=== PATIENT | male | born 1965 | race Caucasian/White ===

== ENCOUNTER 2018-08-17 20:18 | Inpatient (IN) | payer OTHER ==
[~2018-08-17] VITALS: Ht 180.3 cm; Wt 122.3 kg
[2018-08-17 20:42] LABS: BASOPHILS ABSOLUTE AUTO 0.06 K/mm3 (0.00-0.23); BASOPHILS PERCENT AUTO 1 % (0-2); EOSINOPHILS ABSOLUTE AUTO 0.15 K/mm3 (0.00-0.68); EOSINOPHILS PERCENT AUTO 2 % (0-6); Hematocrit 47.3 % (37.0-53.0); Hemoglobin 15.9 g/dL (13.5-17.5); IMMATURE GRAN ABSOLUTE AUTO 0.04 K/mm3 (0.00-0.10); IMMATURE GRAN PERCENT AUTO 1 % (0-1); LYMPHOCYTES ABSOLUTE AUTO 1.05 K/mm3 (0.84-5.20); LYMPHOCYTES PERCENT AUTO 13 % (21-46); MONOCYTES ABSOLUTE AUTO 0.87 K/mm3 (0.16-1.47); MONOCYTES PERCENT AUTO 11 % (4-13); Mean Corpuscular HGB 32.1 pg (26.0-34.0); Mean Corpuscular HGB Conc 33.6 g/dL (31.5-36.5); Mean Corpuscular Volume 96 fL (80-100); Mean Platelet Volume 9.1 fL (9.1-12.4); NEUTROPHILS ABSOLUTE AUTO 5.82 K/mm3 (1.96-9.15); NEUTROPHILS PERCENT AUTO 73 % (41-73); Platelet Count 254 K/mm3 (150-400); RDW Coefficient Variation 12.2 % (11.7-14.2); RDW Standard Deviation 42.9 fL (35.1-46.3); Red Blood Cell Count 4.95 M/mm3 (4.30-5.90); White Blood Cell Count 7.99 K/mm3 (4.00-11.30)
[2018-08-17 20:55] LABS: Albumin, Blood 3.5 g/dL (3.4-5.0); Albumin/Globulin Ratio 1.1 (0.8-1.8); Bilirubin, Total 1.1 mg/dL (0.1-1.0); Bun/Creatinine Ratio 11.9 (12.0-20.0); Calcium, Blood 8.7 mg/dL (8.5-10.1); Creatinine, Blood 1.35 mg/dL (0.60-1.20); Globulin, Blood 3.2 g/dL (2.2-4.0); Potassium, Blood 3.6 mmol/L (3.5-5.5); Total Protein, Blood 6.7 g/dL (6.4-8.2); Troponin I 0.086 ng/mL (0.000-0.040)
[2018-08-17 21:50] LABS: Prothrombin Time Results 10.6 Sec (9.7-11.5)
[2018-08-17] MEDS ORDERED: METO50 PO (22:13)
[2018-08-17] MEDS ORDERED: AMLO5 PO (22:14)
[2018-08-17] MEDS ORDERED: LO-DOSE ASPIRIN81 MG PO (22:16)
[2018-08-17 22:34] LABS: Thyroid Stimulating Hormone 2.55 uIU/mL (0.360-4.800)
--- NOTE | 2018-08-17 23:25 | NUR ---
PATIENT ARRIVED TO ICU14 VIA GURNEY FROM ED. ADMIT WITH DX OF NSTEMI. PATIENT AWAKE, VERBALIZED CONTINUES TO HAVE CHEST PRESSURE TO HIS UPPER CHEST/THROAT AREA 10/10. PATIENT TRANSFER TO BED USING SLIDER SHEET AND PATIENT HAVING N/V WITH SMALL AMT OF CLEAR/BLOOD TINGED SPUTUM. ZOFRAN IV GIVEN. PATIENT PLACED ON ICU MONITORS, REGULATORY LEAD SHOWING SINUS RHYTHM WITH DEPRESSED T WAVE. PATIENT VERBALIZED FEELING IF HE MAY NEED TO HAVE A BM, PASSING FLATUS. PATIENT ABLE TO ANSWER ADMIT QUESTIONS, NAUSEA CONTINUES BUT NO FURTHER EMESIS.
[2018-08-18 00:57] LABS: Source, Urine Clean Catch
[2018-08-18 01:02] LABS: Bilirubin, Urine Neg (Neg); Blood, Urine 1+ (Neg); Glucose Qualitative, Urine Neg (Neg); Ketones, Urine Neg (Neg); Leukocyte Esterase, Urine Neg (Neg); Nitrite, Urine Neg (Neg); Protein, Urine 1+ (Neg); Urobilinogen, Urine NORM (Normal)
[2018-08-18 01:11] LABS: Appearance, Urine Clear (Clear); Bacteria Not Seen /hpf; Color, Urine Yellow (P-Yellow); Red Blood Cells, Urine 0-2 /hpf (0-2); Squamous Epithelial Cells Rare /hpf (Few); White Blood Cells, Urine Rare /hpf (0-5)
[2018-08-18 02:03] LABS: Hematocrit 44.4 % (37.0-53.0); Hemoglobin 15.3 g/dL (13.5-17.5); Mean Corpuscular HGB Conc 34.5 g/dL (31.5-36.5); Mean Corpuscular Volume 96 fL (80-100); Mean Platelet Volume 9.3 fL (9.1-12.4); Platelet Count 235 K/mm3 (150-400); RDW Coefficient Variation 12.3 % (11.7-14.2); RDW Standard Deviation 42.7 fL (35.1-46.3); Red Blood Cell Count 4.64 M/mm3 (4.30-5.90)
[2018-08-18 02:22] LABS: Anion Gap 4 mmol/L (6-16); Blood Urea Nitrogen 17 mg/dL (8-24); Bun/Creatinine Ratio 13.9 (12.0-20.0); CHOL/HDL RATIO 2.7; CO2, Blood 29 mmol/L (21-32); Calcium, Blood 8.7 mg/dL (8.5-10.1); Chloride, Blood 109 mmol/L (98-108); Cholesterol 140 mg/dL (50-200); Creatinine, Blood 1.22 mg/dL (0.60-1.20); Glomerular Filtration Rate >60 (60-); Glucose, Blood 111 mg/dL (70-99); HDL Cholesterol 52 mg/dL (>39); LDL/HDL RATIO 1.4; Low Density Lipoprotein Chol 73 mg/dL (0-110); Sodium, Blood 142 mmol/L (136-145); Triglycerides 73 mg/dL (30-160); Very Low Density Lipoprot Chol 14 mg/dL (6-32)
--- NOTE | 2018-08-18 02:52 | NUR ---
PATIENT INSISTING ON GETTING UP TO BSC TO HAVE BM. PATIENT UP WITH 2 ASSIST WHEN UP ON BSC PATIENT BEGAN TO FEEL IF HE COULDN'T BREATH, AND BECOMING VERY ANXIOUS. PATIENT ABLE TO TRANSFER BACK TO BED WHERE HE HAD DRY HEAVES AND WAS DIAPHORETIC. EKG OBTAINED. SOB APPEARS TO HAVE RESOLVED. PATIENT CONTINUES TO FEEL NAUSEA. PATIENT AGREES THAT HE WILL REMAIN IN BED AND USE BEDPAN IF NEEDED.
--- NOTE | 2018-08-18 03:08 | NUR ---
DOCTOR CHRISTELLE GIVEN UPDATE AND TROPI RESULTS. CONTINUE SAME ORDERS AND REGLAN IV X1.
--- NOTE | 2018-08-18 04:37 | NUR ---
PATIENT VERBALIZED THAT HE IS FEELING BETTER. MID CHEST PRESSURE AND ACHINESS CONTINUES MORE SO WITH DEEP BREATH. NAUSEA HAS PASSED.
--- NOTE | 2018-08-18 06:38 | NUR ---
SUMMARY PATIENT AWAKE MOST OF THE NIGHT. NAUSEA RESOLVED. PATIENT FEELING IF HE STILL NEEDS TO HAVE BM, PLACED ON BEDPAN, PASSING SMEAR OF BROWN STOOL WITH FLATUS. VOIDING DARK ALTAGRACIA URINE T/O NIGHT USING URINAL WITHOUT DIFFICULTY. PATIENT VERBALIZED CONTINUES TO HAVE ACHINESS AND PRESSURE TO MID UPPER CHEST. DBP ELEVATED. NITRO PASTE ORDERED. HEPARIN DRIP CONTINUES AT 13 UNITS/KG.
--- NOTE | 2018-08-18 07:20 | NUR ---
DR. VILLEGAS HERE TO SEE PATIENT. DOCTOR INFORMED THAT PATIENT HAS CONTINUED TO HAVE NAUSEA AND HEAVY CHEST PAIN T/O NIGHT. DOCTOR ALSO INFORMED THAT PATIENT HAS BEEN HYPERTENSIVE. ORDERS RECEIVED. DOCTOR STATED HE WILL BE TAKING PATIENT TO THE [facility] TODAY.
--- NOTE | 2018-08-18 08:30 | NUR ---
INITIAL ASSESSMENT PATIENT LYING IN BED QUIETLY UPON ENTERING ROOM. PATIENT ALERT AND ORIENTED X 4, AFEBRILE. PATIENT OCCASIONALLY ANXIOUS. PATIENT STATES THAT HE HAS HAD NUMBNESS IN FEET SINCE HIS SYMPTOMS FIRST STARTED YESTERDAY. PATIENT STATES HE HAS A HEAVINESS IN THE MIDDLE OF HIS CHEST THAT HE HAS HAD SINCE YESTERDAY BUT THAT THE PAIN IS MANAGEABLE AT THIS TIME. PATIENT ON 2 L NC FOR FEELING OF SOB. SATS 90% AND GREATER. LUNGS CLEAR IN UPPER LOBES AND DIMINISHED IN LOWER LOBES. PATIENT HAS OCCASIONAL, PRODUCTIVE COUGH, PRODUCING SMALL AMOUNT OF THICK, YELLOW PHLEGM. PATIENT STARTED THAT COUGH STARTED AFTER COMING TO THE HOSPITAL. PATIENT IN SR, T WAVE FLIPPED. HR 80S TO 90S. PATIENT HYPERTENSIVE- SBP 170S TO 180S. PULSES STRONG. SCDS IN PLACE. ABDOMEN MODERATELY DISTENDED, SOFT, TENDER TO PALPATION, WITH HYPOACTIVE BS. PATIENT FEELS NAUSEOUS AND STATES THAT HE HAS BEEN ALL NIGHT. PATIENT NPO EXCEPT PO MEDICATIONS. WNL- PATIENT USING BEDSIDE URINAL. RASH NOTED FROM MID ABDOMEN UP TO NECK; PATIENT STATES THIS IS NORMAL FOR HIM AND SEES CRIMINAL RECORDS TECHNICIAN BECAUSE HE GETS 2 TIMES PER YEAR. TRACE EDEMA NOTED TO BLES. NS INFUSING AT 100 MLS/ HOUR, HEPARIN INFUSING AT 14 UNITS/ KG/ HOUR. BED LOW, CALL LIGHT IN REACH. WILL CONTINUE TO MONITOR PATIENT FREQUENTLY THROUGHOUT SHIFT.
--- NOTE | 2018-08-18 10:32 | NUR ---
DR. ALDRIDGE NOTIFIED THAT PATIENT COMPLAINS OF INCREASING CP, SOB AND IS "FEELING LIKE HE COULD PASS OUT AT ANY TIME". ORDERS RECEIVED FOR PRN NITRO AND EKG NOW. NITRO X 2 GIVEN THUS FAR. EKG PERFORMED. DR. CHRISTINEAD HERE NOW TO SEE PATIENT AND REVIEW EKG. STATES THAT HE BELIEVES PAIN IS NON-CORONARY RELATED. WILL CONTINUE TO MONITOR.
--- NOTE | 2018-08-18 10:37 | NUR ---
PATIENT STATES THAT PAIN IS STILL IN HIS CHEST AFTER RECEIVING 2 DOSES OF PRN NITRO BUT THAT THE PAIN IS NOTICEABLY BETTER. PATIENT STATES PAIN INCREASES WITH COUGHING OR DEEP BREATHING. WILL CONTINUE TO MONITOR.
--- NOTE | 2018-08-18 12:10 | NUR ---
PATIENT RESTING QUIETLY IN BED UPON ENTERING ROOM. AFEBRILE. NO NEURO CHANGES SINCE LAST ASSESSMENT. PATIENT STATES THAT HIS THROAT HURTS, THAT HIS CHEST PAIN IS TOLERABLE AT 4/10, AND THAT HE ALSO HAS SOME RIGHT KIDNEY PAIN. PATIENT STATES THAT HE DOES NOT WANT ANY PAIN MEDICATIONS AT THIS TIME. PATIENT ALSO STATES THAT HE CONTINUES TO HAVE NAUSEA BUT THAT IT IS MUCH BETTER THAN IT WAS BEFORE. PATIENT REMAINS SATTING 90% AND GREATER ON 2 L NC. PATIENT IN SR WITH OCCASIONAL PVCS. T WAVE FLIPPED. HR IN THE 70S. BP STABLE. URINE DARK ORANGE IN COLOR. NO OTHER ACUTE CHANGES TO NOTE ON AT THIS TIME. WILL CONTINUE TO MONITOR.
--- NOTE | 2018-08-18 15:22 | NUR ---
PATIENT TAKEN TO ROBOT TECHNICIAN.
--- NOTE | 2018-08-18 18:17 | NUR ---
PATIENT BACK FROM MANAGER MEDIA RELATIONS AT 1717. PATIENT A LITTLE DROWSY. PATIENT DENIES NAUSEA OR PAIN AT THIS TIME. PATIENT AFEBRILE. PATIENT SATTING 90% AND GREATER ON RA. HR 70S TO 80S. BP STABLE. TR BAND TO RIGHT RADIAL SITE- 12 CC AIR INSTILLED IN BAND. ANGIOSEAL TO R GROIN. NO BLEEDING, BRUISING, OR HEMATOMA NOTED AT EITHER SITE. NO INTERVENTIONS PERFORMED IN MANAGER MEDIA RELATIONS. PATIENT AWARE OF ACTIVITY RESTRICTIONS. NS TKO. HEPARIN DRIP DC'D. NO OTHER ACUTE CHANGES TO NOTE ON AT THIS TIME. WILL CONTINUE TO MONITOR.
--- NOTE | 2018-08-18 19:31 | NUR ---
SHIFT SUMMARY PATIENT REMAINED ALERT AND ORIENTED, AFEBRILE. PATIENT HAD COMPLAINTS OF PAIN IN MID CHEST, THROAT, R KIDNEY AND R RADIAL SITE T/O SHIFT. PATIENT REMAINED SATTING 90% AND GREATER ON RA TO 2 L NC. UPPER LOBES REMAINED CLEAR, LOWER LOBES REMAINED DIMINISHED. PATIENT COMPLAINED OF OFF AND ON SOB T/O SHIFT. PATIENT HAS BEEN COUGHING UP SMALL AMOUNT OF THICK, YELLOW SPUTUM. PATIENT HAS REMAINED IN SR WITH OCCASIONAL PVCS, T WAVE FLIPPED. HR 70S TO 90S. PATIENT HAS BEEN HYPERTENSIVE OFF AND ON. BP MEDS CHANGED DURING THIS SHIFT. PATIENT DID NOT HAVE BM THIS SHIFT. PATIENT HAD NAUSEA UP UNTIL RETURNING FROM SUPERVISOR DRYING AND SOFTENING. PATIENT IS TOLERATING CARDIAC DIET AT THIS TIME. PATIENT VOIDING DARK ORANGE URINE. TR BAND TO R RADIAL- 12 CC AIR INSTILLED- BAND CAN START TO BE DEFLATED NOW. ANGIOSEAL TO R GROIN. BOTH SITES REMAIN STABLE- NO BLEEDING, BRUISING, OR HEMATOMA NOTED. NO INTERVENTION PERFORMED IN SUPERVISOR DRYING AND SOFTENING. NS TKO. ECHO PERFORMED TODAY- EF 30 TO 35%. PATIENT GIVEN 20 MG PO LASIX. PATIENT HAS NO COMPLAINTS AT THIS TIME. REPORT GIVEN TO ASSUMING NURSE, HILARIO Silveira
--- NOTE | 2018-08-18 20:41 | NUR ---
PATIENT AWAKE EATING DINNER. BED REST DUE TO RIGHT GROIN SITE POST CATH. RIGHT GROIN SITE WITH DRESSING D&I WITH SMALL AMT DRY BLOOD CONTAINED IN DRESSING AND SMALL BRUISING TO OUT SIDE OF DRESSING. RIGHT WRIST WITH TR BAND IN PLACE STARTING TO DECREASE PRESSURE TO SITE. SITE REMAINS WITH NO SWELLING, REDNESS OR BLEEDING SEEN. HYPERTENSION CONTINUES PLAN TO GIVE EVENING DOSE OF METOPROLOL NOW. PATIENT CONTINUES TO FEEL SOB AND HAS INCREASED CHEST PRESSURE WITH DEEP BREATH. NO C/O NAUSEA AT THIS TIME.
--- NOTE | 2018-08-18 22:28 | NUR ---
PATIENT RESTING QUIETLY, SLEEPING WITH SOFT SNORING AWAKENS TO SLIGHT STIMULI, PATIENT VERBALIZED THAT HIS PAIN IS BETTER BUT CONTINUES TO C/O SOB OXYGEN REMAINS IN PLACE AT 2L/NC WITH BIOX 96% LUNG SOUND DECREASED BASES. PATIENT VERBALIZED "I JUST DON'T FEEL GOOD" RIGHT GROIN SITE STABLE AND PATIENT ABLE TO REPOSITION SELF IN BED FOR COMFORT. TR BAND FULLY DEFLATED SITE UNCHANGED.
[2018-08-19 03:25] LABS: BASOPHILS ABSOLUTE AUTO 0.06 K/mm3 (0.00-0.23); BASOPHILS PERCENT AUTO 1 % (0-2); EOSINOPHILS ABSOLUTE AUTO 0.21 K/mm3 (0.00-0.68); EOSINOPHILS PERCENT AUTO 3 % (0-6); Hematocrit 45.6 % (37.0-53.0); Hemoglobin 15.1 g/dL (13.5-17.5); IMMATURE GRAN ABSOLUTE AUTO 0.02 K/mm3 (0.00-0.10); IMMATURE GRAN PERCENT AUTO 0 % (0-1); LYMPHOCYTES ABSOLUTE AUTO 0.96 K/mm3 (0.84-5.20); LYMPHOCYTES PERCENT AUTO 11 % (21-46); MONOCYTES ABSOLUTE AUTO 1.03 K/mm3 (0.16-1.47); MONOCYTES PERCENT AUTO 12 % (4-13); Mean Corpuscular HGB 32.2 pg (26.0-34.0); Mean Corpuscular HGB Conc 33.1 g/dL (31.5-36.5); Mean Corpuscular Volume 97 fL (80-100); NEUTROPHILS ABSOLUTE AUTO 6.24 K/mm3 (1.96-9.15); NEUTROPHILS PERCENT AUTO 73 % (41-73); Platelet Count 230 K/mm3 (150-400); RDW Coefficient Variation 12.4 % (11.7-14.2); RDW Standard Deviation 44.1 fL (35.1-46.3); Red Blood Cell Count 4.69 M/mm3 (4.30-5.90); White Blood Cell Count 8.52 K/mm3 (4.00-11.30)
[2018-08-19 03:39] LABS: Albumin, Blood 3.5 g/dL (3.4-5.0); Anion Gap 4 mmol/L (6-16); Blood Urea Nitrogen 14 mg/dL (8-24); Bun/Creatinine Ratio 11.2 (12.0-20.0); CO2, Blood 31 mmol/L (21-32); Calcium, Blood 8.5 mg/dL (8.5-10.1); Chloride, Blood 104 mmol/L (98-108); Creatinine, Blood 1.25 mg/dL (0.60-1.20); Glomerular Filtration Rate >60 (60-); Glucose, Blood 94 mg/dL (70-99); Phosphorus, Blood 3.4 mg/dL (2.5-4.9); Sodium, Blood 139 mmol/L (136-145)
--- NOTE | 2018-08-19 06:17 | NUR ---
SUMMARY PATIENT SLEEPING WELL T/O NIGHT. AWAKENS TO SLIGHT STIMULI, FALLING BACK TO SLEEP WHEN UNDISTURBED. RIGHT WRIST SITE REMAINS STABLE WITH CLEAR DRESSING IN PLACE ARM BOARD IN PLACE. RIGHT GROIN SITE REMAINS SOFT WITH NO CHANGE TO BRUISING SEEN AROUND SITE. FREIGHT CAR CLEANER SHOWING LESS PVC'S TONIGHT. PATIENT C/O FEELING SOB AT BEGINNING OF SHIFT 2L/NC REMAINS IN PLACE, PATIENT APPEARS TO HAVE NO MORE C/O FEELING SOB. PATIENT NOW PCU STATUS.
--- NOTE | 2018-08-19 09:02 | NUR ---
CARE ASSUMED CARE AND REPORT ASSUMED FROM HILARIO ASTORGA. PT UP TO TOILET WITH ASSIST AND THEN COMPLAINED OF R SIDED ABDOMINAL PAIN, AND R LEG PAIN. POPLITEAL AND PEDAL PULSES PRESENT. NO ERYTHEMA OR WARMTH TO EITHER LEG. MILD SURROUNDING ECCHYMOSIS AROUND R GROIN PUNCTURE SITE AND SURROUNDING TISSUE IS SOFT WITH TENDERNESS TO PALPATION. LUNG SOUNDS CLEAR. PT C/O SOB; PREFERES TO WEAR 2L NC. R RADIAL SITE INTACT WITH NO DRAINAGE OR OOZING; R ARM SECURED IN ARMBOARD. IV SALINE LOCKED. NSR, HR 90S. C/O NAUSEA; ZOFRAN 4 MG IVP GIVEN. WILL CONTINUE TO MONITOR.
[2018-08-19 11:08] LABS: Source, Urine Clean Catch
[2018-08-19 11:21] LABS: Appearance, Urine Clear (Clear); Bilirubin, Urine Neg (Neg); Blood, Urine Neg (Neg); Color, Urine Yellow (P-Yellow); Glucose Qualitative, Urine Neg (Neg); Ketones, Urine Neg (Neg); Leukocyte Esterase, Urine Neg (Neg); Nitrite, Urine Neg (Neg); Protein, Urine Neg (Neg); Urobilinogen, Urine NORM (Normal)
--- NOTE | 2018-08-19 11:41 | NUR ---
REASSESSMENT PT WHEELED TO CT SCAN FOR IMAGING AND IS NOW BACK IN RECLINER CHAIR. SITTING UP TALKING ON PHONE. PT HAS INTERMITTENT EPISODES WHERE HE COMPLAINS OF PAIN TO BACK, THEN IT CHANGES TO SHOULDER, THEN BACK TO ABDOMEN, THEN LEG WHEN HE STANDS, AND NOW PAIN IS BACK IN SHOULDER. DENIES NAUSEA AT THIS TIME. VSS. NSR, HR 70S. SPO2 98% ON RA. AFEBRILE. REFUSES PAIN MEDS. UA SENT TO LAB. WILL CONTINUE TO MONITOR.
--- NOTE | 2018-08-19 17:57 | NUR ---
SHIFT SUMMARY PT HAD MULTIPLE COMPLAINTS OF PAIN THIS AM AT START OF SHIFT. SINCE THEN, PAIN HAS IMPROVED BUT STILL SLIGHTLY REMAINS ON R ABDOMEN AND R FLANK. RECIEVED ABDOMINAL CT TODAY TO R/O RETROPERITONEAL BLEED. HEPATIC US ALSO DONE THIS AM. MD GOEL NOTIFIED THAT PT WOULD LIKE TO DISCUSS HIS TEST RESULTS WITH HER; BESIDE AT THIS TIME. ORDER FOR LIFE [facility]ST FAXED TO CARDIOLOGY OFFICE. COMPO CONVEYOR OPERATOR CONSULT ORDERED FOR HELP WITH ARRANGEMENTS TO GO BACK HOME. R GROIN SITE AND R RADIAL SITE ARE INTACT WITH NO BLEEDING AND NO CHANGES OF ECCHYMOSIS. PT MOBILE AND AMBULATES WITH WALKER BUT IS SLOW AND C/O PAIN TO R LEG. WILL GIVE BEDSIDE, HANDOFF REPORT TO DALLAS ASTORGA.
--- NOTE | 2018-08-20 00:27 | NUR ---
ASSUMED CARE ASSUMED CARE OF PT APPROX. 1900. PT A&OX4. ASSESMENT COMPLETED. VITAL SIGNS STABLE. PT HAS RT GROIN SITE, POST ANGIO. DRAINAGE NOTED BUT REMAINS UNCHAGNED VIA REPORT. DRAINAGE HAS REMAINED UNCHANGED SINCE START OF SHIFT. BRUISING NOTED AT SITE AND THIS HAS REMAINED UNCHANGED WELL. SITE TENDER TO TOUCH. PREVIOUS RN REPORTED THIS TO BE UNCHANGED. PT REPROTS INCREASE IN PAIN ON RIGHT ABDOMEN. PRN PAIN MEDICATION GIVEN PER EMAR. BED IN LOW POSITION, CALL LIGHT IN REACH AND PT DENIES ANY NEEDS AT THIS TIME.
[2018-08-20 03:57] LABS: Albumin, Blood 3.4 g/dL (3.4-5.0); Anion Gap 5 mmol/L (6-16); Blood Urea Nitrogen 16 mg/dL (8-24); Bun/Creatinine Ratio 13.4 (12.0-20.0); CO2, Blood 28 mmol/L (21-32); Calcium, Blood 8.8 mg/dL (8.5-10.1); Chloride, Blood 106 mmol/L (98-108); Creatinine, Blood 1.19 mg/dL (0.60-1.20); Glomerular Filtration Rate >60 (60-); Glucose, Blood 103 mg/dL (70-99); Phosphorus, Blood 2.8 mg/dL (2.5-4.9); Potassium, Blood 3.9 mmol/L (3.5-5.5); Sodium, Blood 139 mmol/L (136-145)
--- NOTE | 2018-08-20 06:32 | NUR ---
SHIFT SUMMARY PT PLEASANT, COOPERTIVE AND USES CALL LIGHT APPROPRIATELY. PT REMAINS A&OX4. ASSESSMENT FINDINGS REMAIN UNCHANGED. RT RADIAL SITE REMAINS UNCHANGED. TEGADERM IN PLACE. NO CHANGES IN DRAINAGE. REMOVED ARMBOARD AND TOLERATING WELL. REINFORCED EDUCATION ON RESTRICTIONS FOR THIS AT THIS TIME. RT GROIN SITE DRESSING CHANGED AT START OF SHIFT. NO NEW DRAINAGE NOTED. SITE REMAINS TENDER AND BRUISED BUT UNCHANGED. PT ABLE TO REST MOST OF SHIFT. NO MORE C/O INCREASE PAIN AFTER INTIAL PAIN. BED IN LOW POSITION, CALL LIGHT IN REACH AND PT DENIES ANY NEEDS AT THIS TIME. WILL CONTINUE TO MONITOR UNTIL HANDOFF TO DAYSHIFT RN.
--- NOTE | 2018-08-20 10:10 | NUR ---
[facility]: RECEIVED CALL BACK FROM [facility]. INSTRUCTIONS TO FAX ORDER TO [email or web address]. RECEIVED [facility] REP DURGA NOWAK [phone]. WILL FOLLOW UP WITH HIM FOR FURTHER INSTRUCTIONS.
--- NOTE | 2018-08-20 10:11 | NUR ---
CALL TO [facility]: CALLED TO FOLLOW UP ON [facility] FOR PT. VAN FROM THE [facility] THAT [facility] IS NOT IN UNTIL FRIDAY. AWAITING CALL BACK FROM [facility] FOR INFORMATION ON WHO ELSE CAN PLACE VEST.
--- NOTE | 2018-08-20 10:20 | NUR ---
FAX: CHART ORDER FORM FOR [facility] FAXED OFF TO [phone] AT THIS TIME.
--- NOTE | 2018-08-20 10:30 | NUR ---
CALL TO [facility] REP: PLACED CALL TO DURGA NOWAK AT APPROX 1019. RECEIVED INSTRUCTIONS TO FAX OFF COPY OF ECHO AND PROGRESS NOTES. WILL PRINT AND FAX RITA
--- NOTE | 2018-08-20 11:20 | NUR ---
CALL FROM [facility] REP: CALLED FOR UPDATE ON FAX. GAUTHERING CHART INFO AT THIS TIME.
--- NOTE | 2018-08-20 11:30 | NUR ---
[facility] UPDATE: FAXED PROGRESS NOTES AND ECHO INFORMATION ON PT. CALLED AND NOTIFIED DURGA NOWAK AT THIS TIME.
--- NOTE | 2018-08-20 12:00 | NUR ---
[facility] UPDATE: FACE SHEET AND ORDER FAXED
--- NOTE | 2018-08-20 13:45 | NUR ---
[facility] UPDATE: RECEIVED CALL FROM [facility]. PT APPROVED FOR VE[facility]. AWAITING CALL TO SET UP PLACEMENT. NOTIFIED CARE PLANER.
--- NOTE | 2018-08-20 14:00 | NUR ---
DR UPDATE: DR GOEL NOTIFIED OF PLAN OF CARE AND HIGH LIKELY PARMAR OF PT RECEIVING [facility] AFTER 1500. AWAITING CALL FOR SET UP. DR GOEL STATES SHE WILL PLACE DISCHARGE ORDER. CARE KENNEL ATTENDANT FOUND TRANSPERTATION FOR ONCE PT IS DISCHARGED.
--- NOTE | 2018-08-20 14:31 | NUR ---
[facility] UPDATE: PSR WITH [facility] CALLED AND STATES SHE SHOULD BE ABLE TO ARRIVE AT APPROX [address] VE[facility]
--- NOTE | 2018-08-20 15:56 | NUR ---
WALKER: PT STATES WILL BE UNABLE TO GET AROUND WITHOUT A WALKER AT THIS TIME. CALLED AND TALKED TO HONORIO MACK RNPOULTRY CLEANER. WILL WORK ON GETTING AN ORDER AND AQUIRING WALKER FOR PT TO TAKE UPON DISCHARGE.
--- NOTE | 2018-08-20 16:43 | NUR ---
AJIT TECH: LIFE VEST PLACEMTNE AND EDUCATION BEING DONE AT THIS TIME BY AJIT NUNES. WALKER DELIVERED FOR PT TO TAKE UPON DISCHARGE AT THIS TIME WELL.
[2018-08-20] MEDS ORDERED: LISI5 PO (16:46)
[2018-08-20] MEDS ORDERED: NITR.4SL SL (16:47)
[2018-08-20] MEDS ORDERED: FURO20 PO (16:48)
--- NOTE | 2018-08-20 17:11 | NUR ---
NEW MEDICATIONS: NEW PERSCRIPTIONS CALLED TO [facility] [place], PER PT REQUEST.
--- NOTE | 2018-08-20 18:26 | NUR ---
DISCHARGE INSTRUCTIONS: GAVE AND REVIEWED DISCHARGE PACKET WITH PT. REVIEWED CONTINUED AND STOPPED MEDICATIONS ALONG WITH POSSIBLE SIDE EFFECTS. CONTINUED TO REVIEW DR INSTRUCTIONS AND EDUCATED PT TO FOLLOW UP WITH BIOMEDICAL ENGINEERING PROFESSOR IN HIS AREA SOON POSSIBLE. AWAITING TRANSPORT TO [facility]. WILL DC IV'S ONCE TRANSPORT [facility].
--- NOTE | 2018-08-20 18:35 | NUR ---
SUMMARY: 1442: PT ARIVES 1445: RECEIVED VERBAL ORDER FOR FENTANYL AND VERSED FROM [facility] 1450: DR MICHELE PLACED PROLAPSED RECTUM BACK INTO PLACE. PT RECEIVED 1 MG OF VERSED AND 50 MEQ OF FENTANYL. 1500: 2L O2 VIA NC PUT IN PLACE D/T DECREASED O2 LEVELS AND DECREASED MENTATION. 1523: 3% NA STARTED AT 25 PER REPORTING RN. 1540: CALLED TO [facility] 3% NA ORDER. INCREASED PUMP RATE TO 30ML/HR. NEW ORDERS PLACED. 1745: DR LOMAX NOTIFIED OF NA LEVELS DRAWN, RECEIVED ORDERS TO INCREASE 3% TO 35ML/HR INCREASED PUMP RATE AT THIS TIME. 1841: BLADDER SCAN NOTED PT TO HAVE APPROX 750ML IN BLADDER DR LOMAX NOTIFIED AND RECEIVED ORDER FOR HODGE. ALSO RECEIVED ORDER TO HOLD NS MAINTANENCE FLUID OF 100ML/HR WHILE 3% NA IS BEING INFUSED. HODGE BEING PLACED AT THIS TIME.
--- NOTE | 2018-08-20 18:55 | NUR ---
DISCHARGE AT THIS TIME: PT BEING WHEELED OUT TO TRANSPORT AT THIS TIME.
== END 2018-08-20 18:58 | disposition home or self-care (01) | DRG 286 ==
LOC: ER 20:18 → ICUW 22:16
PROVIDERS: Emergency Medicine; Family Medicine; Nurse Practitioner Acute Care; ADMIT Hospitalist
PROC: B2161ZZ Fluoroscopy of Right and Left Heart using Low Osmolar Contrast (ICD-10-PCS; principal; 2018-08-18)
PROC: 4A023N7 Measurement of Cardiac Sampling and Pressure, Left Heart, Percutaneous Approach (ICD-10-PCS; 2018-08-18)
PROC: B41F1ZZ Fluoroscopy of Right Lower Extremity Arteries using Low Osmolar Contrast (ICD-10-PCS; 2018-08-18)
DX: I13.0 Hypertensive heart and chronic kidney disease with heart failure and stage 1 through stage 4 chronic kidney disease, or unspecified chronic kidney disease (principal); I50.21 Acute systolic (congestive) heart failure; N17.9 Acute kidney failure, unspecified; I47.1 Supraventricular tachycardia; I24.8 Other forms of acute ischemic heart disease; I42.9 Cardiomyopathy, unspecified; E66.9 Obesity, unspecified; Z68.34 Body mass index [BMI] 34.0-34.9, adult; K76.0 Fatty (change of) liver, not elsewhere classified; Z87.891 Personal history of nicotine dependence; I11.0 Hypertensive heart disease with heart failure; I34.0 Nonrheumatic mitral (valve) insufficiency; I27.20 Pulmonary hypertension, unspecified; I44.5 Left posterior fascicular block; N20.0 Calculus of kidney; Z79.82 Long term (current) use of aspirin; E11.22 Type 2 diabetes mellitus with diabetic chronic kidney disease; N18.3 Chronic kidney disease, stage 3 (moderate)
CPT/HCPCS: 36415; 71046; 71260; 74176; 76705; 80048; 80053; 80061; 80069; 81001; 81003; 83036; 83690; 83735; 83880; 84443; 84484; 85025; 85027; 85347; 85610; 85651; 85730; 86141; 93005; 93010; 93306; 93458; 96361; 96374-59; 96375-59; 96376-59; 99152; 99153; 99285-25; A9270; C1760; C1769; C1894; J0360; J1644; J1940; J2250; J2270; J2405; J2765; J3010; J7030; Q9967